=== PATIENT | male | born 1980 | race Caucasian/White ===

== ENCOUNTER 2023-03-06 11:57 | Emergency (ER) | payer OTHER ==
[~2023-03-06] VITALS: Ht 177.8 cm; Wt 104.8 kg
[2023-03-06 12:01] VITALS: BP_SYST 135
[2023-03-06] MEDS ORDERED: KETOROLAC TROMETHAMINE 60 MG/2 ML VIAL IM ONE (12:30)
[2023-03-06] MEDS ORDERED: HYDROcodone/ACETAMIN 10-325 MG TAB PO ONE (12:30)
[2023-03-06 12:48] LABS: BASOPHILS % (AUTO) 0.1 % (0.0-2.0); EOSINOPHILS # (AUTO) 0.2 K/uL (0.0-0.4); EOSINOPHILS % (AUTO) 1.2 % (0.0-4.0); HEMATOCRIT 39.8 % (36-54); HEMOGLOBIN 13.5 g/dL (14.0-18.0); LYMPHOCYTES # (AUTO) 1.3 K/uL (1.0-5.5); MEAN CORPUSCULAR HEMOGLOBIN 29 pg (27-31); MEAN CORPUSCULAR HGB CONC 34 % (32-36); MEAN CORPUSCULAR VOLUME 85 fL (79.0-98.0); MONOCYTES # (AUTO) 0.8 K/uL (0.0-1.0); MONOCYTES % (AUTO) 6.1 % (1.7-9.3); NEUTROPHILS # (AUTO) 10.8 K/uL (1.8-7.7); NEUTROPHILS % (AUTO) 82.6 % (40.0-70.0); PLATELET COUNT (AUTO) 230 K/uL (130-430); RED BLOOD CELL COUNT(AUTO) 4.68 MIL/uL (4.2-6.2); RED CELL DISTRIBUTION WIDTH 14.5 % (9.0-15.0); WHITE BLOOD COUNT (AUTO) 13.1 K/uL (4.8-10.8)
[2023-03-06 13:02] LABS: CALCIUM 8.8 mg/dL (8.4-11.0); CREATININE 1.42 mg/dL (0.55-1.30)
[2023-03-06 13:06] LABS: ALBUMIN 3.5 g/dL (3.4-4.8); C-REACTIVE PROTEIN QUANT 6.1 mg/dL (0-0.5); TOTAL BILIRUBIN 0.6 mg/dL (0.0-1.0); URIC ACID 6.9 mg/dL (2.4-7.0)
[2023-03-06] MEDS ORDERED: IBUP-1971 PO (13:50)
[2023-03-06] MEDS ORDERED: TRAM50TA2 PO (13:50)
[2023-03-06] MEDS ORDERED: ALLO100T PO (13:50)
[2023-03-06 14:47] VITALS: BP_SYST 136
== END 2023-03-06 14:49 | disposition home or self-care (01) ==
LOC: SED 11:57
DX: M13.871 Other specified arthritis, right ankle and foot (principal); Z88.8 Allergy status to other drugs, medicaments and biological substances
CPT/HCPCS: 99284; 80053; 84550; 85025; 86140; 36415; 73630; 96372; J1885